=== PATIENT | female | born 2005 | race Caucasian/White ===

== ENCOUNTER → 2024-02-04 11:30 | Outpatient (CLI) | payer MEDICAID, SELFPAY ==
--- NOTE | 2024-02-04 11:34 | DI.US.S_ITS ---
PROCEDURE: US EXTREMELY NONVASC UPPER RT INDICATIONS: CYST ON RT FINGER TECHNIQUE: Real-time scanning was performed of the right 4th finger, with image documentation. COMPARISON: None. FINDINGS: Focused ultrasound examination over dorsal aspect of 4th finger at the level of 4th PIP joint shows a 0.53 x 0.18 x 0.48 cm hypoechoic nodule with trace internal vascularity near lateral aspect of right 4th PIP joint. Surrounding soft tissue swelling and edema is also noted. IMPRESSION: Cystic structure within soft tissue over dorsal and lateral aspect of 4th PIP joint at patient's reported area of palpable lump and measures 0.53 x 0.18 x 0.48 cm in size. Trace amount of internal vascularity is seen concerning for cystic neoplasm of indeterminate nature. Consider biopsy or excision for more definitive diagnosis. Dictated by: Luis Antonio Lala M.D. on 02/05/2024 at 0:16 Approved by: Luis Antonio Lala M.D. on 02/05/2024 at 0:21
== END ==
PROVIDERS: Referring Provider Family Medicine; Visit Provider Family Medicine
DX: M25.841 Other specified joint disorders, right hand (principal); M67.449 Ganglion, unspecified hand
CPT/HCPCS: 76882